=== PATIENT | male | born 1950 | race Native Hawaiian/Other Pacific Islander ===

== ENCOUNTER → 2022-12-30 11:13 | Outpatient (CLI) | payer OTHER, SELFPAY | PROVIDERS: Referring Provider Chiropractor; Visit Provider Chiropractor | DX: J41.0 Simple chronic bronchitis (principal) | CPT/HCPCS: 94060 ==

== ENCOUNTER → 2024-08-03 15:45 | Outpatient (CLI) | payer MEDICARE, OTHER, SELFPAY | DX: R05.3 Chronic cough (principal); R94.2 Abnormal results of pulmonary function studies | CPT/HCPCS: 94060; 94726; 94729 ==